=== PATIENT | female | born 1945 | race Caucasian/White ===

== ENCOUNTER → 2016-10-04 | Outpatient (CLI) | payer BC ==
[~2016-10-04] MED LIST: ANAS1TAB19 PO; ASPI-461 PO; CALC500C70 PO; CHOLTAB3 PO; EFF75 PO
--- NOTE | 2016-10-04 16:07 | MAMMOGRAPHY REPORT ---
BILATERAL DIGITAL DIAGNOSTIC MAMMOGRAM TOMOSYNTHESIS WITH CAD: 10/04/2016 CLINICAL HISTORY: Asymptomatic. Personal history of breast cancer. TECHNIQUE: Bilateral CC and MLO 2-D digital and tomosynthesis images, spot magnification right CC an d ML views were obtained. Current study was also evaluated with a Computer Aided Detection (CAD) sy stem. COMPARISON: Comparison is made to exams dated: 04/25/2016 mammogram, 10/22/2015 specimen, 10/22/2015 l ocalization, 10/12/2015 breast MRI, 09/29/2015 mammogram, and 09/29/2015 stereotactic biopsy - [facility]. BREAST COMPOSITION: There are scattered areas of fibroglandular density in both breasts. FINDINGS: A linear scar marker overlies the upper outer quadrant of the right breast, marking the ar ea of the skin incision. There is mild diffuse skin thickening and trabecular edema of the right br east. There are numerous surgical clips and expected architectural distortion in the upper outer po sterior right breast, at the site of prior lumpectomy. 3 benign-appearing calcifications are again seen on the spot magnification views near the surgical site. The most anterior calcification now ap pears dermal in origin. There is a stable ribbon shaped metallic biopsy marker in the upper outer q uadrant of the right breast. There are benign vascular calcifications in the breasts and a benign r im calcification within the left breast. No new suspicious mass, architectural distortion or cluste r of suspicious microcalcifications is seen bilaterally. IMPRESSION: ACR-BI-RADS CATEGORY 3: PROBABLY BENIGN Stable bilateral mammograms including 3 benign-appearing microcalcifications in the right upper oute r quadrant and expected post-therapeutic changes in the right breast. Another short interval follow -up right mammogram including spot magnification views in 6 months is recommended to ensure longer s tability after treatment. These results and recommendations were discussed with the patient at the time of the exam. Approximately 10% of breast cancers are not detected with mammography. A negative mammographic repor t should not delay biopsy if a clinically suggestive mass is present. Mary Rincon M.D. ay/:10/04/2016 11:07:15 Manager Mobile: Gabriella Reyes, [facility] letter sent: Follow Up Recommended 3 BI-RADS Code: ACR-BI-RADS Category 3: Probably Benign
== END | disposition home or self-care (01) ==
LOC: C.MAMM 10:17
PROVIDERS: ATTEND Radiology Radiation Oncology
DX: Z12.31 Encounter for screening mammogram for malignant neoplasm of breast (principal); R92.0 Mammographic microcalcification found on diagnostic imaging of breast; Z85.3 Personal history of malignant neoplasm of breast